=== PATIENT | female | born 1980 | race Caucasian/White ===

== ENCOUNTER 2018-06-27 08:15 | Day surgery (SDC) | payer BC ==
[2018-06-27] MEDS ORDERED: PROPOFOL 10 MG/ML VIAL IV ONE (08:16)
[2018-06-27] MEDS ORDERED: LIDOCAINE 2% MDV (20MG/ML) 20ML VIAL IV ONE (08:16)
--- NOTE | 2018-07-17 13:10 | Operative Note ---
DATE OF SERVICE: 06/27/2018. DATE OF SURGERY: 06/27/2018. REQUESTING PROVIDER: Nghia Camargo DO. Surgeon: Oniel Cho MD. POSTOPERATIVE DIAGNOSIS: Normal colon, mucosa with no new masses or lesions. OPERATION: COLONOSCOPY. Indication for Procedure: This is a 37-year-old female with history of constipation and intermittent periods of rectal pain, who presented for colonoscopy. SEDATION: Sedation is per Anesthesia. Pulse oximetry was monitored throughout the duration of the procedure to maintain O2 saturation of 90% or greater. Supplemental oxygen was administered via nasal cannula. Cardiac and vital signs were monitored throughout the duration of the procedure and they were stable. PROCEDURE: The procedure of colonoscopy, risks and alternatives to the procedure, including the risks of bleeding and perforation among others, were explained to the patient. She voiced understanding and agrees to have the procedure done. Physical examination was performed and the patient was found stable for sedation. The patient was then placed in the left lateral position and sedation was initiated. Digital rectal exam was performed and showed small external hemorrhoids with no palpable rectal masses. A lubricated Olympus [id number] colonoscope was then inserted into the rectum and under direct visualization was advanced to the cecum without difficulty. The ileocecal valve and appendiceal orifice were identified and photographed. The colonic mucosa was carefully examined upon introduction of the colonoscope. There were no lesions noted. The bowel preparation was excellent. The ileocecal valve was intubated and terminal ileal mucosa was inspected for about 10 cm, and it appeared normal. The colonoscope was then withdrawn very carefully, re-examining the colonic mucosal surfaces. No other lesions were noted. In the rectum, retroflexion maneuver was performed and there were no lesions noted. The colonoscope was then withdrawn and the procedure was terminated. The patient tolerated the procedure well, without immediate complications. She remained in stable vital signs and was transferred into the Recovery Room. PLAN AND RECOMMENDATIONS: 1. Patient is to continue on a high-fiber diet. 2. She is to drink fluids, especially water, up to 64 ounces a day. 3. I would be happy to see her back in the office as needed. In the meantime, she is to have a repeat colonoscopy when she turns 48. Thank you for allowing me to participate in the care of your patient. CC: MD Nghia Prince DO [facility]
== END 2018-06-27 10:02 | disposition home or self-care (01) ==
LOC: HOP 08:15
PROVIDERS: ATTEND Internal Medicine Gastroenterology
DX: Z12.11 Encounter for screening for malignant neoplasm of colon (principal); Z87.19 Personal history of other diseases of the digestive system; F32.9 Major depressive disorder, single episode, unspecified
CPT/HCPCS: 00812; 81025; G0121